=== PATIENT | male | born 1980 | race African-American/Black ===

== ENCOUNTER → 2016-09-13 | Outpatient (CLI) | payer BC ==
--- NOTE | 2016-09-13 16:42 | RAD ---
EXAM: Renal/retroperitonal ultrasound HISTORY: Crossed fused renal ectopia. COMPARISON: None. FINDINGS: Ultrasound of the kidneys, bladder and retroperitoneum was performed. 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 The right moiety measures 8.7 x 4.8 x 3.4 cm. The left measures 10.1 x 4.6 x 5.7 cm. They are connected by an isthmus measuring 2 cm in thickness. Cortical thickness and echogenicity appear preserved. There is no hydronephrosis. Images of the bladder reveal no gross abnormality. IMPRESSION: 1. Crossed fused renal ectopia. No hydronephrosis.
== END | disposition home or self-care (01) ==
LOC: US 15:15
PROVIDERS: ATTEND Internal Medicine
DX: Q63.1 Lobulated, fused and horseshoe kidney (principal)
CPT/HCPCS: 76770